=== PATIENT | male | born 1945 | race Caucasian/White ===

== ENCOUNTER 2018-12-29 16:26 | Emergency (ER) | payer MEDICARE ==
[~2018-12-29 16:26] MED LIST: Dexamethasone 20 MG/5 ML VIAL ONE; Lidocaine 1% PF 5 ML VIAL ONE; Ondansetron PF 4 MG/2 ML Vial ONE; PROPOFOL 200 MG/20 ML VIAL ONE; Succinylcholine Chloride 20 MG/ML 10 ml SYRINGE FS ONE
[2018-12-29 17:10] LABS: #Basophils 0.1 thou/uL (0.0-0.2); #Eosinphils 0.1 thou/uL (0.0-0.7); #Lymphocytes 2.2 thou/uL (1.20-3.40); #Monocytes 0.6 thou/uL (0.11-0.59); #Neutrophils 7.8 thou/uL (1.40-6.50); %Basophils 0.6 % (0.0-1.0); %Eosinophils 0.5 % (0.0-10.0); %Lymphocytes 20.6 % (21.0-51.0); %Monocytes 5.5 % (0.0-10.0); %Neutrophils 72.7 % (42.0-75.0); Hemoglobin 18.2 g/dL (14.0-18.0); Mean Corpuscular HGB CONC 34.1 g/dL (32.0-36.0); Mean Corpuscular Volume 93.9 fL (78.0-98.0); Mean Platelet Volume 8.4 fL (7.4-10.4); Platelet Count 236 thou/uL (130-400); RBC Distribution Width 12.2 % (11.5-14.5); Red Blood Cell (RBC) Count 5.69 mill/uL (4.70-6.10); White Blood Cell (WBC) Count 10.8 thou/uL (4.8-10.8)
[2018-12-29 17:31] LABS: ALT (SGPT) 18 U/L (8-55); AST (SGOT) 21 U/L (5-34); Albumin 4.4 g/dL (3.4-4.8); Alkaline Phosphatase 72 U/L (40-150); Anion Gap 12 mmol/L (10-20); BUN (Urea Nitrogen) 16 mg/dL (8.4-25.7); Bilirubin, Total 1.7 mg/dL (0.2-1.2); Calc. Creatinine Clearance 0 mL/min (70-130); Calcium 10.1 mg/dL (7.8-10.44); Carbon Dioxide 23 mmol/L (23-31); Chloride 109 mmol/L (98-107); Estimated GFR-MDRD 68; Globulin 3.2 g/dL (2.4-3.5); Glucose 106 mg/dL (83-110); Potassium 4.4 mmol/L (3.5-5.1); Protein, Total 7.6 g/dL (5.8-8.1); Sodium 140 mmol/L (136-145)
[2018-12-29] MEDS ORDERED: Fentanyl 100 MCG/2 ML VIAL ONE (18:52)
--- NOTE | 2018-12-29 21:15 | HP ---
DATE OF CONSULTATION: 12/29/2018 REASON FOR CONSULTATION: Dysphagia, foreign body impaction in esophagus. HISTORY OF PRESENT ILLNESS: Mr. James Becerra is a very pleasant 73-year-old male, history of esophageal stricture and had dilation done by Dr. Martin in [place] 5 years ago. The patient has had dysphagia off and on. Dysphagia occurs mostly to meat and bread. Today, he was eating some peanut butter, sandwiches . He felt the sandwich got hung in the esophagus. Since that time, he is unable to swallow saliva, not able to drink water. He has been constantly gagging spitting up a large amount of mucus. There is odynophagia. The patient has had dysphagia off and on where the food hangs up in the esophagus. It usually happens mostly to meat. However, today he did not eat any meat. The patient has no other relevant history. ALLERGIES: NONE. SOCIAL HISTORY: The patient does not smoke, but drinks alcohol socially. MEDICAL ILLNESSES: Borderline hypertension. No diabetes. No COPD. No heart disease. PAST SURGICAL HISTORY: 1. Sinus surgery in the past. 2. Esophageal dilation [address] Martin in [place]. No other surgeries. FAMILY HISTORY: Unremarkable. MEDICATION LIST: Reviewed. REVIEW OF SYSTEMS: A 10-point systems reviewed. CONSTITUTIONAL: No history of weight loss. Energy level is good. Exercise tolerance is very good. No history of fever or chills. HEENT: No headache. No syncope. No TIA. EYES: No impaired vision. EARS: No impaired hearing. NOSE: No nosebleed. THROAT: No sore throat. NECK: No stiffness or pain. LUNGS: No chronic coughing. No hemoptysis. No dyspnea. CARDIOVASCULAR: No chest pain. No palpitation. No dyspnea, orthopnea, or PND. ABDOMEN: No abdominal pain, nausea, vomiting. No hematochezia. No melena. : No dysuria, hematuria. MUSCULOSKELETAL: Nonrelevant. NEUROENDOCRINE: Nonrelevant. PHYSICAL EXAMINATION: GENERAL: Appears to be in moderate discomfort because of food impaction. He is constantly gagging and trying to spit up. He is spitting up mostly mucus. VITAL SIGNS: Actually very stable. He is afebrile. Pulse is 76 and blood pressure 130/80. HEENT: Conjunctivae clear. NECK: Supple. No adenitis or thyromegaly noted. CARDIOVASCULAR: First and second heart sounds are normal. LUNGS: Clear to auscultation. ABDOMEN: Soft. No organomegaly. No tenderness. No masses. EXTREMITIES: Reveal no edema. CLINICAL IMPRESSION: Foreign body impaction in esophagus. PLAN: EGD and removal of foreign body. I have met with Mr. Becerra's son who is in the room. I explained the procedure in detail. I explained the potential risks like aspiration, bleeding, perforation. I will plan for EGD as soon as possible. Job ID: [id number]
--- NOTE | 2018-12-30 08:32 | OP ---
DATE OF PROCEDURE: 12/29/2018 PROCEDURES PERFORMED: 1. Esophagogastroduodenoscopy with disimpaction of esophageal foreign body. 2. Esophageal dilation with a balloon size 15 to 18 mm to stage 2 for 2 minutes. PREOPERATIVE DIAGNOSES: Dysphagia, esophageal foreign body. POSTOPERATIVE DIAGNOSES: 1. Esophageal foreign body, obstruction of esophageal lumen and large amount of fluid above the foreign body. 2. gastroesophageal junction. DESCRIPTION OF PROCEDURE: The patient was intubated and was given sedation by Anesthesia Department. The patient was placed in left lateral position. A bite block was placed. A Pentax video gastroscope under direct vision passed down the throat. The patient had large amount of thick liquid with some debris in the posterior pharynx. This was suctioned. The scope was advanced into the esophagus with difficulty. The patient had large amount of fluid around the foreign body. The fluid was suctioned out. I could see a slimy jelly-like ball in the esophagus which was freely floating in the liquid. The patient was given IV glucagon 1 mg. I was able to push that jelly-like ball into his stomach without difficulty. The stomach, fundus, cardia, gastric body, gastric antrum, duodenum, no pathology. It appeared to be GE junction. A Bard balloon size 15 to 18 mm was placed over the stomach and was brought across the GE junction to the distal esophagus. This balloon was inflated to stage 1 for 2 minutes and to stage 2 for 1 minute. Following dilation, there were mild friability and mild oozing of blood noted. This indicated successful dilation. No complication noted. The stomach was decompressed and the scope was removed. DISCHARGE PLANNING: This is a 73-year-old male, came to the ER from [place] because of foreign body impaction. He tells me he was eating some peanut butter sandwich with mayonaise and also was taking some Metamucil. Subsequently, he was unable to eat anything or drink anything. He came to the ER and he was gagging and spitting up. He was taken to endoscopy room and he was found to have a slimy ball like thing in the distal esophagus and obstructing lumen. This appears to be more of a Metamucil ball. It was very slimy and free-floating. This was pushed into the stomach. After the esophageal lumen was cleared, he underwent dilation. He did well postprocedure and is being discharged home. DISCHARGE INSTRUCTIONS: The patient advised to call me if chest pain, fever, hematochezia, or melena. In the absence of any of the symptoms, come back to me in 2 weeks. Job ID: [id number]
== END 2018-12-29 21:00 | disposition home or self-care (01) ==
LOC: ERS 16:26
DX: K22.2 Esophageal obstruction (principal)
CPT/HCPCS: 80053; 85025; 93005; J1610; J1100; J2001; J2405; J2704; J3010

== ENCOUNTER 2021-10-15 18:29 | Observation (INO) | payer MEDICARE ==
[2021-10-15 20:51] VITALS: BMI 24.5
[2021-10-15] MEDS ORDERED: Senokot S 8.6-50 MG TAB PO PRN (21:12)
[2021-10-15] MEDS ORDERED: Bisacodyl 5 MG TAB PO PRN (21:12)
[2021-10-15] MEDS ORDERED: Ondansetron PF 4 MG/2 ML Vial IVP PRN (21:12)
[2021-10-15] MEDS ORDERED: Acetaminophen 325 MG TAB PO PRN (21:12)
[2021-10-15] MEDS ORDERED: Melatonin 3 MG TAB PO PRN (21:19)
[2021-10-15] MEDS ORDERED: Atorvastatin Calcium 40 MG TAB PO SCH (21:45)
[2021-10-15] MEDS ORDERED: Pantoprazole 40 MG VIAL IVP SCH (22:30)
[2021-10-16 05:57] LABS: #Eosinphils 0.2 thou/uL (0.0-0.7); #Lymphocytes 2.3 thou/uL (1.20-3.40); #Monocytes 0.6 thou/uL (0.11-0.59); #Neutrophils 3.7 thou/uL (1.40-6.50); %Basophils 0.4 % (0.0-1.0); %Eosinophils 3.4 % (0.0-10.0); %Lymphocytes 33.1 % (21.0-51.0); %Monocytes 9.3 % (0.0-10.0); %Neutrophils 53.8 % (42.0-75.0); Hemoglobin 15.4 g/dL (14.0-18.0); Mean Corpuscular Hemoglobin 31.8 pg (27.0-31.0); Mean Corpuscular Volume 96.5 fL (78.0-98.0); Mean Platelet Volume 7.9 fL (7.4-10.4); Platelet Count 194 thou/uL (130-400); Red Blood Cell (RBC) Count 4.86 mill/uL (4.70-6.10); White Blood Cell (WBC) Count 6.9 thou/uL (4.8-10.8)
[2021-10-16 06:07] LABS: Hemoglobin A1c 5.4 % (4.0-6.0)
[2021-10-16 06:33] LABS: ALT (SGPT) 17 U/L (8-55); AST (SGOT) 15 U/L (5-34); Albumin 3.3 g/dL (3.4-4.8); Alkaline Phosphatase 51 U/L (40-110); Anion Gap 10 mmol/L (10-20); BUN (Urea Nitrogen) 14 mg/dL (8.4-25.7); Bilirubin, Total 0.8 mg/dL (0.2-1.2); Calc. Creatinine Clearance 68 mL/min (70-130); Calcium 8.9 mg/dL (7.8-10.44); Carbon Dioxide 24 mmol/L (23-31); Cardiac Risk 6.4 (Less than 4.5); Chloride 109 mmol/L (98-107); Cholesterol 210 mg/dl (< 200 Desired); Globulin 2.5 g/dL (2.4-3.5); Glucose 105 mg/dL (83-110); HDL Cholesterol 33 mg/dL (>60 Neg Risk); LDL Cholesterol, Calculated 141 mg/dL; Potassium 4.4 mmol/L (3.5-5.1); Protein, Total 5.8 g/dL (5.8-8.1); Sodium 139 mmol/L (136-145); Triglycerides 181 mg/dL (Less than 150)
[2021-10-16] MEDS ORDERED: Aspirin 81 mg Enteric Coated Tablet PO SCH (09:00)
[2021-10-16] MEDS ORDERED: Pantoprazole 40 MG VIAL IVP SCH (09:00)
[2021-10-16] MEDS ORDERED: Enoxaparin Sodium 40 MG/0.4 ML SYRINGE SC SCH ×2 (09:00)
[2021-10-16 12:00] LABS: SARS-CoV-2 PCR by NAA Not Detected (NotDetected)
[2021-10-16 12:03] VITALS: TEMP 97.7
[2021-10-16 12:08] VITALS: BP 149/81
[2021-10-16] MEDS ORDERED: Atorvastatin Calcium 40 MG TAB PO SCH (21:00)
== END 2021-10-16 16:30 | disposition home or self-care (01) ==
LOC: NEURO 20:21
PROVIDERS: ADMIT Emergency Medicine; ATTEND Emergency Medicine
DX: I63.9 Cerebral infarction, unspecified (principal); G83.11 Monoplegia of lower limb affecting right dominant side; R03.0 Elevated blood-pressure reading, without diagnosis of hypertension; N40.0 Benign prostatic hyperplasia without lower urinary tract symptoms; E78.2 Mixed hyperlipidemia; I65.23 Occlusion and stenosis of bilateral carotid arteries; J32.9 Chronic sinusitis, unspecified; I08.8 Other rheumatic multiple valve diseases; Z79.899 Other long term (current) drug therapy; Z20.822 Contact with and (suspected) exposure to COVID-19
CPT/HCPCS: 70551; 80053; 80061; 83036; 85025; 93306; 97139 ×3; U0003; U0005; 36415; 96372; 96374; 96376; C9113; G0378; J1650

== ENCOUNTER 2021-11-26 14:54 | Inpatient (IN) | payer MEDICARE ==
[2021-11-26 18:48] VITALS: BMI 25.3
[2021-11-26] MEDS ORDERED: Acetaminophen 325 MG TAB PO PRN (22:32)
[2021-11-26] MEDS ORDERED: Bisacodyl 5 MG TAB PO PRN (22:32)
[2021-11-26] MEDS ORDERED: Bisacodyl 10 MG SUPP PR PRN (22:32)
[2021-11-26] MEDS ORDERED: HYDROcodone/Acetaminophen 5/325 mg Tablet PO PRN (22:32)
[2021-11-26] MEDS ORDERED: Senokot S 8.6-50 MG TAB PO PRN (22:32)
[2021-11-26] MEDS ORDERED: Calcium Carbonate 500 MG ChewTAB PO PRN (22:32)
[2021-11-26] MEDS ORDERED: Loperamide HCl 2 MG CAP PO PRN (22:32)
[2021-11-27 05:13] LABS: #Eosinphils 0.3 thou/uL (0.0-0.7); #Lymphocytes 2.6 thou/uL (1.20-3.40); #Monocytes 0.6 thou/uL (0.11-0.59); #Neutrophils 4.8 thou/uL (1.40-6.50); %Basophils 0.2 % (0.0-1.0); %Lymphocytes 31.9 % (21.0-51.0); %Monocytes 7.3 % (0.0-10.0); %Neutrophils 57.6 % (42.0-75.0); Hemoglobin 14.9 g/dL (14.0-18.0); Mean Corpuscular HGB CONC 33.4 g/dL (32.0-36.0); Mean Corpuscular Hemoglobin 32.2 pg (27.0-31.0); Mean Corpuscular Volume 96.5 fL (78.0-98.0); Platelet Count 204 thou/uL (130-400); RBC Distribution Width 11.7 % (11.5-14.5); Red Blood Cell (RBC) Count 4.61 mill/uL (4.70-6.10); White Blood Cell (WBC) Count 8.3 thou/uL (4.8-10.8)
[2021-11-27 05:50] LABS: Anion Gap 12 mmol/L (10-20); BUN (Urea Nitrogen) 16 mg/dL (8.4-25.7); Calc. Creatinine Clearance 79 mL/min (70-130); Calcium 8.7 mg/dL (7.8-10.44); Carbon Dioxide 22 mmol/L (23-31); Cardiac Risk 4.3 (Less than 4.5); Chloride 110 mmol/L (98-107); Cholesterol 120 mg/dl (< 200 Desired); Estimated GFR 77; Glucose 106 mg/dL (83-110); HDL Cholesterol 28 mg/dL (>60 Neg Risk); LDL Cholesterol, Calculated 65 mg/dL; Potassium 4.1 mmol/L (3.5-5.1); Sodium 140 mmol/L (136-145); Triglycerides 135 mg/dL (Less than 150)
[2021-11-27] MEDS: Famotidine/PF 20 mg/2ml Vial SLOW IVP SCH ×2 (08:53→20:39)
[2021-11-27] MEDS: Tamsulosin HCl 0.4 MG CAP PO SCH (08:53)
[2021-11-27] MEDS: Enoxaparin Sodium 40 MG/0.4 ML SYRINGE SC SCH (08:54)
[2021-11-27] MEDS: Aspirin 81 mg Enteric Coated Tablet PO SCH (08:59)
[2021-11-27] MEDS ORDERED: Iopamidol-370 76% 500 ML 1 ML ONE (11:07)
[2021-11-27] MEDS: Atorvastatin Calcium 40 MG TAB PO SCH (20:39)
[2021-11-27] MEDS: Clopidogrel Bisulfate 75 MG TAB PO SCH (20:39)
[2021-11-27] MEDS ORDERED: Metamucil PACK PO SCH (21:15)
[2021-11-27 22:48] LABS: SARS-CoV-2 NAA Rapid Test Not Detected (NotDetected)
[2021-11-28 05:19] LABS: #Basophils 0.1 thou/uL (0.0-0.2); #Eosinphils 0.2 thou/uL (0.0-0.7); #Lymphocytes 2.7 thou/uL (1.20-3.40); #Monocytes 0.7 thou/uL (0.11-0.59); #Neutrophils 4.9 thou/uL (1.40-6.50); %Basophils 0.7 % (0.0-1.0); %Eosinophils 2.7 % (0.0-10.0); %Lymphocytes 31.9 % (21.0-51.0); %Monocytes 7.6 % (0.0-10.0); Hemoglobin 16.3 g/dL (14.0-18.0); Mean Corpuscular HGB CONC 31.5 g/dL (32.0-36.0); Mean Corpuscular Hemoglobin 31.4 pg (27.0-31.0); Mean Corpuscular Volume 99.6 fL (78.0-98.0); Mean Platelet Volume 8.3 fL (7.4-10.4); Platelet Count 210 thou/uL (130-400); RBC Distribution Width 12.1 % (11.5-14.5); Red Blood Cell (RBC) Count 5.19 mill/uL (4.70-6.10); White Blood Cell (WBC) Count 8.6 thou/uL (4.8-10.8)
[2021-11-28 05:40] LABS: Anion Gap 13 mmol/L (10-20); BUN (Urea Nitrogen) 14 mg/dL (8.4-25.7); Calc. Creatinine Clearance 84 mL/min (70-130); Calcium 9.1 mg/dL (7.8-10.44); Carbon Dioxide 23 mmol/L (23-31); Chloride 107 mmol/L (98-107); Estimated GFR 83; Glucose 96 mg/dL (83-110); Potassium 4.3 mmol/L (3.5-5.1); Sodium 139 mmol/L (136-145)
[2021-11-28] MEDS: Famotidine/PF 20 mg/2ml Vial SLOW IVP SCH ×2 (07:42→20:21)
[2021-11-28] MEDS ORDERED: PROPOFOL 20 ML ONE (08:58)
[2021-11-28] MEDS ORDERED: PROPOFOL 200 MG/20 ML VIAL ONE (09:20)
[2021-11-28] MEDS: Metamucil PACK PO SCH (11:01)
[2021-11-28] MEDS: Enoxaparin Sodium 40 MG/0.4 ML SYRINGE SC SCH (11:01)
[2021-11-28] MEDS: Aspirin 81 mg Enteric Coated Tablet PO SCH (11:01)
[2021-11-28] MEDS: Tamsulosin HCl 0.4 MG CAP PO SCH (11:02)
[2021-11-28] MEDS: Atorvastatin Calcium 40 MG TAB PO SCH (20:21)
[2021-11-28] MEDS: Clopidogrel Bisulfate 75 MG TAB PO SCH (20:21)
[2021-11-29 06:16] LABS: Anion Gap 11 mmol/L (10-20); BUN (Urea Nitrogen) 15 mg/dL (8.4-25.7); Calc. Creatinine Clearance 72 mL/min (70-130); Calcium 9.1 mg/dL (7.8-10.44); Carbon Dioxide 27 mmol/L (23-31); Chloride 107 mmol/L (98-107); Estimated GFR 69; Glucose 104 mg/dL (83-110); Potassium 4.7 mmol/L (3.5-5.1); Sodium 140 mmol/L (136-145)
[2021-11-29 06:45] LABS: Band 6 % (5-11); Eosinophils 3 % (0-10); Hemoglobin 15.1 g/dL (14.0-18.0); Lymphocytes 29 % (21-51); MDiff Complete? YES; Mean Corpuscular HGB CONC 33.8 g/dL (32.0-36.0); Mean Corpuscular Hemoglobin 33.1 pg (27.0-31.0); Mean Corpuscular Volume 97.9 fL (78.0-98.0); Mean Platelet Volume 8.1 fL (7.4-10.4); Monocytes 13 % (0-10); Neutrophil 47 % (42-75); Platelet Count 188 thou/uL (130-400); RBC Distribution Width 11.7 % (11.5-14.5); Red Blood Cell (RBC) Count 4.57 mill/uL (4.70-6.10); White Blood Cell (WBC) Count 8.1 thou/uL (4.8-10.8)
[2021-11-29] MEDS: Tamsulosin HCl 0.4 MG CAP PO SCH (09:46)
[2021-11-29] MEDS: Aspirin 81 mg Enteric Coated Tablet PO SCH (09:46)
[2021-11-29] MEDS: Famotidine/PF 20 mg/2ml Vial SLOW IVP SCH (09:47)
[2021-11-29] MEDS: Metamucil PACK PO SCH (09:47)
[2021-11-29] MEDS: Enoxaparin Sodium 40 MG/0.4 ML SYRINGE SC SCH (09:48)
[2021-11-29] MEDS ORDERED: Lidocaine 1% (PF) 30 ML VIAL ONE (11:37)
[2021-11-29 15:39] VITALS: BP 138/67; TEMP 97
== END 2021-11-29 17:44 | disposition home or self-care (01) | DRG 42 ==
LOC: NEURO 18:45 → OBSVTOIN 11-27 14:12
PROVIDERS: ADMIT Hospitalist; ATTEND Hospitalist
PROC: B24BZZ4 Ultrasonography of Heart with Aorta, Transesophageal (ICD-10-PCS; principal; 2021-11-29)
PROC: 0JH602Z Insertion of Monitoring Device into Chest Subcutaneous Tissue and Fascia, Open Approach (ICD-10-PCS; 2021-11-29)
PROC: 4A12X4Z Monitoring of Cardiac Electrical Activity, External Approach (ICD-10-PCS; 2021-11-29)
DX: G45.9 Transient cerebral ischemic attack, unspecified (principal); Z20.822 Contact with and (suspected) exposure to COVID-19; M48.061 Spinal stenosis, lumbar region without neurogenic claudication; I10 Essential (primary) hypertension; E78.5 Hyperlipidemia, unspecified; R13.10 Dysphagia, unspecified; N40.0 Benign prostatic hyperplasia without lower urinary tract symptoms; Z79.82 Long term (current) use of aspirin; Z79.899 Other long term (current) drug therapy; I69.991 Dysphagia following unspecified cerebrovascular disease
CPT/HCPCS: 36415; 70496; 70498; 70551; 72148; 80048; 80061; 85025; 93312; C1764; J1650; J2001; J2704; Q9967; S0028; U0002